=== PATIENT | male | born 1990 | race Caucasian/White ===

== ENCOUNTER 2023-08-17 14:53 | Emergency (ER) | payer BC, SELFPAY ==
[2023-08-17 14:55] VITALS: BP 142/91
--- NOTE | 2023-08-17 15:26 | ED.GENMED ---
History of Present Illness
General
Chief Complaint: Musculo-Skeletal Complaint
Source: patient
Exam Limitations: none
Time Seen by Provider: 08/17/23 15:04
Nursing documentation reviewed up to this point in time: agreed with
Travel History
Have you had any contact with someone who has COVID-19?: No
Do you have any symptoms of coronavirus? Fever > 100 degrees, chills, cough, shortness of breath, sore throat, loss of taste or smell, muscle aches, or headache?: No
History of Present Illness
History of Present Illness:
Patient is a 33-year-old male who presents to the emergency department with left knee discomfort and inability to weight-bear on his left leg after feeling a pop when stepping off a dirt mound and a curb after work today. Patient denies any
previous injuries. Patient denies any other injuries.
Past History
Past History
ED Past Medical History: Other (ADHD)
Social History
Tobacco: Non-smoker
Review of Systems
Review of Systems
All Other Systems: Not applicable
Phy Exam
Physical Exam
Physical Exam:
Physical Exam
General: mild distress, alert and appropriate, well nourished, well hydrated
HENT: Normocephalic, supple
Eyes: Clear sclera, conjuctiva without injection
Neuro: Alert and oriented x 3, CN II - XII intact, no motor focality, no cerebellar dysfunction
Skin: no wounds
Psychiatric: well kept. interactive and cooperative
Extremities: No edema, cyanosis. Good and equal peripheral pulses. Left knee demonstrates the patella To be displaced superiorly to the joint. Neurovascularly intact. No instability of the joint. Appears the patient
tore the infrapatellar tendon
Course
Orders/Labs/Results
Orders:
Orders
08/17/23 14:58
Knee, Left 4 or More Views [CR Knee - Left 4 Or More View*] Urgent
Comment:
Reason For Exam: injury
Vital Signs
Initial and Last Documented VS:
Initial Vital Signs
Temp Pulse Resp BP Pulse Ox
98.3 F 92 18 142/91 94
08/17/23 14:55 08/17/23 14:55 08/17/23 14:55 08/17/23 14:55 08/17/23 14:55
Last Documented Vital Signs
Temp Pulse Resp BP Pulse Ox
98.3 F 92 18 142/91 94
08/17/23 14:55 08/17/23 14:55 08/17/23 14:55 08/17/23 14:55 08/17/23 14:55
*Radiology
Radiology exam reviewed: preliminary read by ED provider (Patellar displaced superiorly)
*Pulse Oximetry
Patient hypoxic: no
*EKG
Interpreted by ED Provider?: NA
*Corn [place] Interpretation
Rate: [place]- N/A
*Critical Care Note
Total Time (30-74mins, 75-104mins- exclusive of procedures): Not Applicable
Update Note
Update Note:
Spoke with Ortho and will see the patient early next week the patient is to call today for an appointment.
ED Attending Note
-
Portions of this chart may have been created with voice recognition software.� Occasional wrong word or��sound alike� substitutions may have occurred due to the inherent limitations of voice recognition software.
Discharge Plan
Departure
Patient Disposition: Home (Routine Discharge)
Date of Disposition: 08/17/23
Time of Disposition: 15:31
Patient with high blood pressure during this ER visit?: Yes
Condition: Fair
Covid-19: Not Applicable
Discharge Problem:
Patellar tendon rupture
Instructions: How to Use Crutches, Knee Immobilizer (DC), Using Cold for Pain, Quadriceps and Patellar Tendon Injuries
Referrals:
Darrell Bender MD [Active] - Call in 1-3 days for appt
Activity Restrictions/Additional Instructions:
Call today for an appointment early next week. Acetaminophen 1000 mg or ibuprofen 400 mg every 6 hours for pain. Elevate and use ice to the area 20 to 30 minutes 4-5 times a day.
Interventions
Interventions:
*Risk Screen - Suicide Last Done: 08/17/23 14:57
*General Assessment Last Done: 08/17/23 14:57
*Neglect/Abuse Screening Last Done: 08/17/23 14:57
Discharge Date and Time
Print Language: CZECH
== END 2023-08-17 16:08 | disposition home or self-care (01) ==
LOC: EMR 14:53
PROVIDERS: EMERGENCY PHYSICIAN Emergency Medicine
DX: S76.112A Strain of left quadriceps muscle, fascia and tendon, initial encounter (principal); X58.XXXA Exposure to other specified factors, initial encounter; F90.9 Attention-deficit hyperactivity disorder, unspecified type
CPT/HCPCS: 99283; 73564